=== PATIENT | female | born 1945 ===

== ENCOUNTER 2024-01-08 06:30 | Day surgery (SDC) | payer OTHER ==
[~2024-01-08 06:30] MED LIST: GLIPIZIDE XL5 MG; LOSARTAN-HCTZ1 EAC2 PO; METFORMIN HCL1000 M2; NORVASC2.5 MG; OZEMPIC0.25 MG/02; SIMVASTATIN80 MG PO; TOPROL XL50 M1
[2024-01-08] MEDS ORDERED: POVIDONE-IODINE 118 ML BOTT TOP ONE ×2 (12:25→21:00)
[2024-01-08] MEDS ORDERED: IBU600 MG PO (13:47)
[2024-01-08] MEDS ORDERED: ENALAPRILAT DIHYDRATE 1.25 MG/ML VIAL IV ONE ×2 (14:46→15:29)
== END 2024-01-08 17:25 | disposition home or self-care (01) ==
LOC: CIR.AMB 06:30
PROVIDERS: ATTEND Obstetrics & Gynecology Gynecology
DX: N95.0 Postmenopausal bleeding (principal); D25.0 Submucous leiomyoma of uterus; E11.9 Type 2 diabetes mellitus without complications; I10 Essential (primary) hypertension